=== PATIENT | male | born 1960 | race Caucasian/White ===

== ENCOUNTER 2019-07-23 19:52 | Emergency (ER) | payer OTHER, MEDICAID ==
[~2019-07-23] VITALS: Ht 175.3 cm; Wt 82.7 kg
[2019-07-23 20:23] LABS: ABSOLUTE BASOPHILS 0.1 thou/uL (0.0-0.2); ABSOLUTE EOSINOPHILS 0.1 thou/uL (0.0-0.7); ABSOLUTE MONOCYTES 0.7 thou/uL (0.0-1.2); ABSOLUTE NEUTROPHILS 4.2 thou/uL (1.6-8.1); BASOPHILS 1.3 %; EOSINOPHILS 2.1 %; HEMATOCRIT 43.1 % (42.0-52.0); HEMOGLOBIN 15.2 gm/dL (14.0-18.0); LYMPHOCYTES 28.4 %; MCH 33.6 pg (26.0-34.0); MCHC 35.3 g/dL (28.0-37.0); MCV 95.1 fL (80.0-100.0); MONOCYTES 9.4 %; MPV 9.3 fl. (7.2-11.1); NUCLEATED RBCS 0 /100WBC; PLATELET COUNT* 140 thou/uL (150-400); POLYS 58.8 %; RBC 4.53 mil/uL (4.50-6.00); RDW-CV 13.5 % (10.5-14.5); WBC 7.1 thou/uL (4.0-11.0)
[2019-07-23 20:36] LABS: ANION GAP 13 mmol/L (7-16); BUN 14 mg/dL (7-18); CALCIUM 8.8 mg/dL (8.5-10.1); CHLORIDE 105 mmol/L (98-107); CO2 24 mmol/L (21-32); GLUCOSE 116 mg/dL (70-99); POTASSIUM 3.5 mmol/L (3.5-5.1); SODIUM 142 mmol/L (136-145)
[2019-07-23 20:38] LABS: PROTIME 10.3 Seconds (9.20-11.50)
[2019-07-23] MEDS ORDERED: RANEXA500 MG (20:48)
[2019-07-23] MEDS ORDERED: ATORVASTATIN CA80 MG (20:49)
[2019-07-23] MEDS ORDERED: ASPIR 8181 M1 (20:49)
[2019-07-23] MEDS ORDERED: LOPRESSOR50 (20:50)
[2019-07-23] MEDS ORDERED: NORVASC5 MG (20:50)
[2019-07-23] MEDS ORDERED: PLAVIX 75 MG TA75 M1 (20:50)
[2019-07-23] MEDS ORDERED: ZANTAC 150MG T150 MG (20:51)
[2019-07-23] MEDS ORDERED: LISINOPRIL5 MG (20:51)
[2019-07-23] MEDS ORDERED: PROTONIX40 M1 (20:52)
[2019-07-23] MEDS ORDERED: MAGOX 400400 MG (20:52)
[2019-07-23 20:53] LABS: ALKALINE PHOSPHATASE 95 U/L (46-116); LIPASE 151 U/L (73-393); NT-PRO BRAIN NAT PEPTIDE 6 pg/mL (<300); SGOT 22 U/L (15-37); SGPT 65 U/L (30-65); TOTAL BILIRUBIN 0.3 mg/dL (<0.1-1.0); TOTAL PROTEIN 7.6 g/dL (6.4-8.2); TROPONIN-I LEVEL <0.06 ng/mL (<0.06)
[2019-07-23] MEDS ORDERED: TOPAMAX25 M1 (20:53)
[2019-07-23] MEDS ORDERED: MOBIC7.5 MG (20:54)
[2019-07-23 23:13] LABS: URINE BILIRUBIN NEGATIVE (Negative); URINE BLOOD NEGATIVE (Negative); URINE CLARITY CLEAR; URINE COLOR YELLOW; URINE GLUCOSE-RANDOM NEGATIVE (Negative); URINE KETONES NEGATIVE (Negative); URINE LEUKOCYTES-REFLEX NEGATIVE (Negative); URINE NITRITE-REFLEX NEGATIVE (Negative); URINE PROTEIN NEGATIVE (Negative); URINE SPECIFIC GRAVITY <= 1.005 (1.005-1.030); URINE UROBILINOGEN 0.2 E.U./dl (0.2-1.0)
[2019-07-23 23:30] LABS: AMP/METHAMP Negative (Negative); BARBITURATES Negative (Negative); BENZODIAZEPINES Negative (Negative); COCAINE Negative (Negative); METHADONE Negative (Negative); OPIATES Negative (Negative); PCP Negative (Negative); THC Negative (Negative)
[2019-07-23] MEDS ORDERED: NORCO 7.5-3251 EACH PO (23:36)
[2019-07-24 00:37] VITALS: BP 129/82
--- NOTE | 2019-07-27 14:46 | EKG ---
[place] [address] ELECTROCARDIOGRAM REPORT Name: CHONIKER Room: [facility]#: [id number] Admission: 07/23/19 Attend Phys: Discharge: 07/24/19 Date of : 64 Report #: [id number] THIS REPORT FOR: //name// [facility] ED Test Date: 2019-07-23 Test Time: 20:34:34 Pat Name: IKER GIVENS Department: Room: Gender: M Vulnerability Assessment Analyst: SLICK : 1960 Requested By: Sally Bautista Order Number: [id number] MD: Yair Carrion Measurements Intervals [place] Rate: 66 P: 10 AK: 196 QRS: 99 QRSD: 99 T: 32 QT: 396 QTc: 415 Interpretive Statements Sinus rhythm Right axis deviation Abnormal R-wave progression, late transition Baseline wander in lead(s) II,aVR,aVF,V1 No previous ECG available for comparison Electronically Signed On 07-27-2019 14:46:44 CDT by Yair Carrion [email or web address] <ELECTRONICALLY SIGNED> By: Yair Carrion MD, [facility] 07/27/19 1446 33 33 Yair Carrion MD, [facility] /EPI
== END 2019-07-24 00:10 | disposition home or self-care (01) ==
LOC: EDBD 19:52 → M.ERS 19:52
PROVIDERS: Emergency Medicine
DX: G43.109 Migraine with aura, not intractable, without status migrainosus (principal); Z86.73 Personal history of transient ischemic attack (TIA), and cerebral infarction without residual deficits; Z88.0 Allergy status to penicillin